=== PATIENT | female | born 1940 | race African-American/Black ===

== ENCOUNTER → 2017-11-02 | Outpatient (CLI) | payer OTHER ==
[~2017-11-02] MED LIST: ASPIRIN325 PO; LISINOPRIL5 MG PO; MAXZIDE 75-501 EACH PO
--- NOTE | ~2017-11-02 | 2DMMODE ---
[facility] [address] [place] [address] 2 D/M-MODE ECHOCARDIOGRAM Name: JASVIR LOZA [facility]: [id number] Admission: 11/02/17 Attend Phys: Braeden Live Discharge: Date of : 42 Date of Service: 11/02/17 1525 Report #: [id number] THIS REPORT FOR: //name// APPROVED REPORT Study performed: 11/02/2017 13:09:26 EXAM: Comprehensive 2D, Doppler, and color-flow Echocardiogram Patient Location: Out-Patient Status: routine BSA: 1.66 HR: 70 bpm BP: 139/85 mmHg Rhythm: NSR Other Information Study Quality: Adequate Indications Hypertension/HDD 2D Dimensions RVDd: 45.09 mm LVEF(%): 62.81 (>50%) IVSd: 9.81 (7-11mm) LVOT Diam: 19.62 (18-24mm) LVDd: 49.03 mm PWd: 7.75 (7-11mm) Ascending Ao: 36.86 (22-36mm) LVDs: 32.34 (25-40mm) Aortic Root: 28.85 mm IVC: 11.00 mm TAPSE: 1.70 (<1.7) Chaudhry's LVEF: 62.81 % Volumes Left Atrial Volume (Systole) Single Plane 4CH: 38.70 mL Single Plane 2CH: 41.66 mL LA ESV Index: 27.00 mL/m2 Aortic Valve AoV Peak Froilan.: 1.86 m/s AO Peak Gr.: 13.87 mmHg LVOT Max P.07 mmHg LVOT Max V: 1.66 m/s BRENDA Vmax: 2.70 cm2 Mitral Valve E/A Ratio: 0.9 [facility] [address] [place] [address] 2 D/M-MODE ECHOCARDIOGRAM Name: JASVIR LOZA [id number] Admission: 11/02/17 Attend Phys: Braeden Live Discharge: Date of : 42 Date of Service: 11/02/17 1525 Report #: [id number] MV Decel. Time: 206.60 ms MV E Max Froilan.: 0.90 m/s MV A Froilan.: 1.01 m/s MV PHT: 59.92 ms IVRT: 78.43 ms Pulmonary Valve PV Peak Froilan.: 1.05 m/s PV Peak Gr.: 4.42 mmHg Pulmonary Vein P Vein S: 0.59 m/s P Vein A: 0.24 m/s P Vein D: 0.43 m/s P Vein A Dur.: 87.7 msec P Vein S/D Ratio: 1.37 Tricuspid Valve TR Peak Froilan.: 2.23 m/s RAP Estimate: 5.00 mmHg TR Peak Gr.: 19.90 mmHg PA Pressure: 24.00 mmHg Left Ventricle The left ventricle is normal size. Mild basal septal hypertrophy is present. The left ventricular systolic function is normal. The left ventricular ejection fraction is within the normal range. LVEF is 55-60%. Grade I - abnormal relaxation pattern. Right Ventricle The right ventricle is normal size. The right ventricular systolic function is normal. Atria Left atrium is mildly dilated. The right atrium size is normal. Aortic Valve The Aortic valve is sclerotic. No aortic regurgitation is present. There is no aortic valvular stenosis. Mitral Valve Mitral valve leaflets are mildly thickened. Trace mitral regurgitation. No evidence of mitral valve stenosis. Tricuspid Valve The tricuspid valve is normal in structure. Trace to mild tricuspid regurgitation. Estimated PAP 24 mmhg. Pulmonic Valve [address] [address] 2 D/M-MODE ECHOCARDIOGRAM Name: JASVIR LOZA Room #: REG [facility]#: [id number] Admission: 11/02/17 Attend Phys: Braeden Live Discharge: Date of : 42 Date of Service: 11/02/17 1525 Report #: [id number] The pulmonary valve is normal in structure. Trace pulmonic regurgitation. Great Vessels The aortic root is normal in size. The ascending aorta is normal in size. IVC is normal in size and collapses >50% with inspiration. Pericardium There is no pericardial effusion. <Conclusion> The left ventricle is normal size. LVEF is 55-60%. Left atrium is mildly dilated. The Aortic valve is sclerotic. Mitral valve leaflets are mildly thickened. Trace mitral regurgitation. The tricuspid valve is normal in structure. Trace to mild tricuspid regurgitation. Estimated PAP 24 mmhg. The pulmonary valve is normal in structure. Trace pulmonic regurgitation. There is no pericardial effusion. <ELECTRONICALLY SIGNED> By: Braeden Chong MD 11/02/17 1525 1525 1525 Braeden Chong MD /INF
== END ==
LOC: CV 05:39
DX: I10 Essential (primary) hypertension (principal); I35.8 Other nonrheumatic aortic valve disorders

== ENCOUNTER → 2020-01-11 | Outpatient (CLI) | payer OTHER | LOC: SJCVC 10:10 | PROVIDERS: ATTEND Internal Medicine | DX: I10 Essential (primary) hypertension (principal); E78.5 Hyperlipidemia, unspecified; E03.9 Hypothyroidism, unspecified; Z79.899 Other long term (current) drug therapy ==